=== PATIENT | female | born 1980 | race Caucasian/White ===

== ENCOUNTER 2025-03-15 12:39 | Emergency (ER) | payer OTHER, SELFPAY ==
[2025-03-15 12:48] VITALS: BP 114/70; PULSE 83; RESP 16; TEMP 36.7; O2SAT 100
--- NOTE | 2025-03-15 12:51 | ED_ITS ---
HPI - General Adult General Chief complaint: Skin/Abscess/Foreign Body Stated complaint: Insect Bite Time Seen by Provider: 03/15/25 12:51 Source: patient and RN notes reviewed Mode of arrival: ambulatory Limitations: no limitations History of Present Illness HPI narrative: Patient sitting in exam room. Patient is nontoxic, vitals stable. Patient presents with concerns for a insect bite, swelling to be low the left submandibular area. States that she went to bed feeling fine, no swelling or pain or redness to the area. Woke up this morning with redness swelling and painful Swallowing. Treatments prior to arrival: none Related Data Allergies Allergy/AdvReac Type Severity Reaction Status Date / Time No Known Allergies Allergy Mild Verified 03/15/25 12:52 Review of Systems 2 Review of Systems: All systems reviewed & are unremarkable except as noted in HPI and below Constitutional: Constitutional: Reports no additional constitutional complaints ENT: Reports as per HPI Cardiovascular: Cardiovascular: Reports no additional cardiovascular complaints, Denies chest pain and Denies dyspnea Respiratory: Respiratory: Reports no additional respiratory complaints, Denies chest congestion, Denies cough and Denies dyspnea Musculoskeletal: Musculoskeletal: Reports no additional musculoskeletal complaints Integumentary/Breasts: Skin/Breast: Reports as per HPI PMFSH Comments At the time of my signature, I reviewed and agree with the nursing past medical, surgical, social, and family history. There is no relevant family history pertinent to the patient complaint. Exam 2 Const: General: cooperative, healthy appearing, comfortable, no acute distress, well developed, alert and well nourished Nutritional Appearance: w ell nourished Orientation/consciousness: patient oriented x3 Limitations: no limitations HENMT: Head: normal to inspection Ears: hearing grossly normal bilaterally, external ears normal, TM's normal bilaterally, EAC's normal, mastoids normal and no periauricular adenopathy Face images: 1. significant swelling with center scabbed area, firm. No fluctuance tender to touch. No increased warmth however it is red. Mouth: Yes Normal oral and palatal mucosa present and Yes lip normal Teeth and gingiva: poor dentition Eyes: General: appearance normal, both eyes and all related structures A lignment and Position: alignment normal Neck: Neck: normal visual inspection and trachea midline Chest: Chest palpation & inspection: normal inspection of the chest Resp: Effort & Inspection: normal respiratory effort and able to speak in complete sentences Auscultation: clear to auscultation bilaterally, no crackles, no rales, no rhonchi and no wheezes Cardio: Rate: regular rate Skin: General skin exam: normal color and no rashes or lesions noted Neuro: General: patient oriented x3, gait normal, moves all extremities and no meningeal signs Cognition (Neuro): normal cognition Speech: normal speech Gait exam (Neuro): Normal gait present Extrem: General: normal to inspection, full ROM, capillary refill normal and normal gait Psych: Appearance: grossly normal and well kempt Mental Status: mental status grossly normal Speech and movement: Normal speech and movement present and Clear speech present Affect: normal affect Attitude: cooperative Course Course Level of Care: Express Care Visit Vital Signs Vital signs: Vital Signs Temperature 98.1 F 03/15/25 12:48 Pulse Rate 83 03/15/25 12:48 Respiratory Rate 16 03/15/25 12:48 Blood Pressure 114/70 03/15/25 12:48 Pulse Oximetry 100 03/15/25 12:48 Oxygen Delivery Room Air 03/15/25 12:48 Temperature 98.1 F 03/15/25 12:48 Pulse Rate 83 03/15/25 12:48 Respiratory Rate 16 03/15/25 12:48 Blood Pressure 114/70 03/15/25 12:48 Pulse Oximetry 100 03/15/25 12:48 Oxygen Delivery Room Air 03/15/25 12:48 Reviewed MDM MDM Narrative Medical decision making narrative: patient sitting in exam room. Patient is nontoxic vitals are stable. Patient with significant swelling to his left some mid do with her area. concern for deep infection, however vitals are stable. Discussed transfer to ER for CT scan and labs, patient is declining at this time. No fluctuance drainable area at this time, discussed applying warm compress, will prescribe antibiotic. Discussed with patient and her significant other that if there is any trouble breathing, increased swelling to please proceed to the emergency room which both verbalized understanding Discharge instructions reviewed with patient, as well as provided in writing per nursing staff. The instructions also include specific and strict return/GO TO THE ER as well as f/u information. All questions have been answered, and the patient deny any further questions with discharge and discharge plan. Some parts of this dictation were generated by voice recognition software and may contain typographical and/or grammatical inaccuracies. Differential Diagnosis Differential Diagnosis: Differential diagnostic considerations for skin/abscess/foreign body issues include abscess of skin or subcutaneous tissue, viral exanthem, dermatophytosis, urticaria, herpes zoster, allergic reaction to drug, cellulitis, eczema, insect bites, impetigo, contact dermatitis, vasculitis. Critical Care Time Critical Care Time Critical Care Time: No Discharge Plan Discharge Clinical Impression: Cellulitis Patient Disposition: Home Condition: Stable Instructions: Antibiotic Form, Cellulitis (ED) Additional Instructions: wash twice a day with warm soapy water apply warm compresses for any new concerns please go directly to the nearest emergency room Patient Language: Ukrainian Prescriptions: New clindamycin HCl [Cleocin HCl] 150 mg capsule 150 mg PO TID 7 Days Qty: 21 0RF Rx Instructions: take with 300 mg clindamycin clindamycin HCl [Cleocin HCl] 300 mg capsule 300 mg PO TID 7 Days Qty: 21 0RF Rx Instructions: take with 150 mg clindamycin Follow-up/Referrals: Mara,Dawson Guadarrama., P.H.D. [Primary Care Provider] Time of Disposition: 13:08
== END 2025-03-15 13:13 | disposition home or self-care (01) ==
PROVIDERS: Emergency Provider Nurse Practitioner; PCP Internal Medicine Gastroenterology
DX: L03.211 Cellulitis of face (principal)
CPT/HCPCS: 99203; G0463